=== PATIENT | female | born 1955 | race Caucasian/White ===

== ENCOUNTER → 2021-06-04 | Outpatient (CLI) | payer OTHER ==
[~2021-06-04] MED LIST: CLON2TAB PO
--- NOTE | 2021-06-04 10:36 | KCIC ---
EXAM: Cervical spine, 3 views; thoracic spine, 3 views. HISTORY: Stenosis. Pain. COMPARISON: None. FINDINGS: Cervical spine: 3 views of the cervical spine are obtained. There is no significant listhesis. There is multilevel endplate remodeling. There is slight disc space narrowing at C5-C6. There is multilevel facet arthropathy. Thoracic spine: 3 views of the thoracic spine are obtained. There is a mild superior endplate rolando dejon fracture at T5. This is of uncertain chronicity. IMPRESSION: 1. Mild superior endplate compression deformity at T5, uncertain chronicity. 2. Multilevel degenerative change involving the cervical spine, primarily at C5-C6. Electronically signed by: Yuridia Lipscomb MD (06/04/2021 10:33 AM) [id number]
== END ==
LOC: KCIC 10:00
PROVIDERS: ATTEND Family Medicine
DX: M47.812 Spondylosis without myelopathy or radiculopathy, cervical region (principal); M48.02 Spinal stenosis, cervical region; M48.8X2 Other specified spondylopathies, cervical region; M48.54XA Collapsed vertebra, not elsewhere classified, thoracic region, initial encounter for fracture
CPT/HCPCS: 72040; 72072

== ENCOUNTER → 2021-09-12 | Outpatient (CLI) | payer MEDICARE, OTHER ==
--- NOTE | 2021-09-12 12:16 | KCIC ---
MR CERVICAL SPINE WO, MRI THORACIC SPINE WO DATE: 09/12/2021 8:08 AM INDICATION: CERVICAL STENOSIS. Chronic neck pain and dye's. TECHNIQUE: Multiplanar multisequence magnetic resonance imaging of the cervical spine was performed w ithout administration of intravenous contrast using the standard cervical spine protocol. COMPARISON: Radiograph 06/04/2021. FINDINGS: Straightening of the cervical lordosis. Normal thoracic kyphosis. No acute fracture. Mild to moderat e multilevel degenerative disc desiccation and disc height loss. The spinal cord is normal in signal intensity. On the limited views of the cranial cavity and brain, the cerebellum and rodrigo have normal morphology and signal characteristics. No Chiari malformation. No soft tissue abnormality. Normal signal voids are present in the vertebral arteries. C2-3: Uncovertebral hypertrophy. Moderate facet arthropathy. Mild right neural foraminal narrowing. N o spinal stenosis. C3-4: Disc osteophyte complex. Uncovertebral hypertrophy. Moderate facet arthropathy. Moderate to sev ere bilateral foraminal narrowing. No spinal canal stenosis. C4-5: Disc osteophyte complex. Uncovertebral hypertrophy. Mild facet arthropathy. Moderate right and severe left neuroforaminal narrowing. Mild to moderate spinal canal stenosis. C5-6: Disc osteophyte complex. Uncovertebral hypertrophy. Mild facet arthropathy. Ligamentum flavum t hickening. Severe bilateral neural foraminal narrowing. Moderate to severe spinal canal stenosis. C6-7: Disc osteophyte complex. Uncovertebral hypertrophy. Mild facet arthropathy. Ligamentum flavum t hickening. Mild right and severe left neural foraminal narrowing. Moderate spinal canal stenosis. C7-T1: Mild facet arthropathy. No significant spinal canal stenosis or neural foraminal narrowing. IMPRESSION: Cervical spondylosis, worst at C5-6 with moderate to severe spinal canal stenosis and severe bilatera l neural foraminal narrowing. Electronically signed by: Jasper Cobos MD (09/12/2021 12:13 PM) [facility]
== END ==
LOC: KCIC MRI 07:55
PROVIDERS: ATTEND Family Medicine
DX: G37.9 Demyelinating disease of central nervous system, unspecified (principal); M48.02 Spinal stenosis, cervical region; M47.814 Spondylosis without myelopathy or radiculopathy, thoracic region; M47.812 Spondylosis without myelopathy or radiculopathy, cervical region; M48.8X3 Other specified spondylopathies, cervicothoracic region; M25.78 Osteophyte, vertebrae; M50.30 Other cervical disc degeneration, unspecified cervical region
CPT/HCPCS: 72141; 72146